=== PATIENT | female | born 1990 | race Caucasian/White ===

== ENCOUNTER 2016-12-15 11:49 | Emergency (ER) | payer OTHER ==
[~2016-12-15] VITALS: Ht 152.4 cm; Wt 55.4 kg
[2016-12-15 15:10] VITALS: BP 116/74
== END 2016-12-15 15:10 | disposition home or self-care (01) ==
LOC: ED 11:49
DX: N83.00 Follicular cyst of ovary, unspecified side (principal)
CPT/HCPCS: Q0092

== ENCOUNTER 2017-04-01 10:47 | Emergency (ER) | payer SELFPAY ==
[~2017-04-01] VITALS: Ht 154.9 cm; Wt 59.0 kg
[2017-04-01 10:54] VITALS: Ht 154.9 cm; Wt 59.0 kg
[2017-04-01 15:05] VITALS: BP 120/73
== END 2017-04-01 15:05 | disposition home or self-care (01) ==
LOC: ED 10:47
DX: O99.611 Diseases of the digestive system complicating pregnancy, first trimester (principal); K92.89 Other specified diseases of the digestive system; Z3A.08 8 weeks gestation of pregnancy

== ENCOUNTER 2019-05-29 02:39 | Emergency (ER) | payer OTHER ==
[~2019-05-29] VITALS: Ht 154.9 cm; Wt 61.9 kg
[2019-05-29 02:51] VITALS: Ht 154.9 cm; Wt 61.9 kg
[2019-05-29 03:45] LABS: BASOPHIL % 0.1 % (0-2); PLATELET COUNT 280 x10^3mcL (130-400); RED CELL DISTRIBUTION WIDTH 13.2 % (11.5-14.5)
[2019-05-29 03:46] LABS: CALCIUM 8.9 mg/dL (8.5-10.1); CARBON DIOXIDE 28.6 mmol/L (21-32); CHLORIDE SERUM 103 mmol/L (98-107); CREATININE SERUM 0.6 mg/dL (0.6-1.0); GFR1 > 60 mL/min; GLUCOSE SERUM 137 mg/dL (74-106); POTASSIUM SERUM 3.5 mmol/L (3.5-5.1); SODIUM SERUM 140 mmol/L (136-145)
[2019-05-29 03:48] LABS: UA SPECIFIC GRAVITY >=1.030 (1.005-1.035); microscopic required? YES; urine erythrocyte 2+ (NEGATIVE)
[2019-05-29 03:51] LABS: ALBUMIN 4.3 g/dL (3.4-5.0); ALKALINE PHOSPHATASE 77 U/L (46-116); ALT/SGPT 35 U/L (14-59); AST/SGOT 51 U/L (15-37); BILIRUBIN TOTAL 0.81 mg/dL (0.20-1.00); LIPASE 276 IU/L (73-393); TOTAL PROTEIN, SERUM 8.6 g/dL (6.4-8.2)
[2019-05-29 05:32] VITALS: BP 111/77
== END 2019-05-29 05:32 | disposition home or self-care (01) ==
LOC: ED 02:39
PROVIDERS: Emergency Medicine
DX: R10.13 Epigastric pain (principal); R10.12 Left upper quadrant pain; R11.0 Nausea
CPT/HCPCS: J1885; J2405; J7030